=== PATIENT | female | born 1985 | race Caucasian/White ===

== ENCOUNTER 2024-07-15 10:53 | Outpatient (CLI) | payer BC, SELFPAY ==
--- NOTE | ~2024-07-15 | MR_ITS ---
EXAMINATION: MR breast BI wo/w con INDICATION: Dense breast tissue TECHNIQUE: Axial VIBRANT pre and dynamic post contrast, Sagittal VIBRANT post contrast, Axial T2 STIR ASSET COMPARISON: None CONTRAST: Multihance, 15 cc BREAST COMPOSITION: Extreme fibroglandular tissue FINDINGS: RIGHT BREAST: There is moderate background parenchymal enhancement. No abnormal enhancement is presen t after contrast administration. No pathologically enlarged axillary or internal mammary lymph nodes are identified. LEFT BREAST: There is moderate background parenchymal enhancement. No abnormal enhancement is present after contrast administration. No pathologically enlarged axillary or internal mammary lymph nodes a re identified. IMPRESSION: No evidence for malignancy. BI-RADS Category 1: Negative Reviewed, dictated and finalized at location . 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
--- OUTSIDE RECORDS SUMMARY | 2024-07-15 12:45 | XMS_ITS | Clinical Summary ---
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 Gender Identity Not on file Sexual Orientation Not on file Plan of Treatment Health Maintenance Due Date Last Done Comments Cervical Cancer Screening Pa p Smear (Age 30 to 64) Every 3 Years 1983 Annual Physical 1986 Hepatitis C 2001 DTaP, Tdap and Td Vaccines ( 1 - Tdap) 2002 Hepatitis B Vaccines (1 of 3 - 19+ 3-dose series) 2002 Cervical Cancer Screening Pa p with HPV Testing (Age 30 to 64) Every 5 Years 2013 Cervical Cancer Screening with HPV 2013 Mammogram Screening 2023 COVID-19 Vaccine (2023-2 5 season) 2024 Influenza Adult (#1) 2024 HPV Vaccines Aged Out No longer eligi ble based on patient's age to complete this topic Meningococcal B Vaccine Aged Out No l onger eligible based on patient's age to complete this topic Meningococcal Vaccine Aged Out No ronan eileen eligible based on patient's age to complete this topic Pneumococcal Vaccine: Pediat rics (0 to 5 Years) and At-Risk Patients (6 to 64 Years) Aged Out No longer eligible b ased on patient's age to complete this topic RSV Immunizations Under 20 Months Aged Out No longer eligible based on patient's age to complete this topic
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
--- OUTSIDE RECORDS SUMMARY | 2024-07-15 12:45 | XMS_ITS ---
Author Organization Unknown Address [address] [place] [phone] Phone Care Team Providers Care Foot Doctor Name Role Phone [place] Tyson Attending Unavailable JAZMINE Granger Primary Unavailable Immunization Immunization Date Status Additional Notes Code Code System Influenza, split virus, trivalent, preservative 03/17/2019 Completed 141 CVX Influenza, split virus, quadrivalent, PF 03/02/2018 Completed 150 CVX Influenza, split virus, quadrivalent, PF 05/23/2018 Completed 150 CVX Influenza, split virus, quadrivalent, PF 02/28/2020 Completed 150 CVX Influenza, split virus, quadrivalent, PF 03/26/2021 Completed 150 CVX COVID-19, mRNA, LNP-S, PF, 1 00 mcg/0.5mL dose or 50 mcg/0.25mL dose 05/16/2020 Completed 207 CVX COVID-19, mRNA, LNP-S, PF, 1 00 mcg/0.5mL dose or 50 mcg/0.25mL dose 06/13/2020 Completed 207 CVX Results DIG 3D ALEE SCREENING MIMI AL - Completed: 01/01/2024 09:04 LOINC: See Scanned Image Attachment for Report Dictated By: Trans Initials: BG Trans Date: 01/02/24 14:34 <<REPDIST>> Social History Type Status Start Date End Date Code Code Syst em Smoking History Never smoker (Never Smoked) 201094914 SNOMED CT Sex Female Hospital Discharge Instructions Should you have any questions prior to discharge, please contact a member of your healthcare team. If you have left the hospital and have any questions, please contact your primary care physician. Reason For Referral No Data Found Plan of Treatment Digital Alee Screen Bilateral ([id number]) Encounters Encounter Diagnosis Start Date Code Code Sys tem Screening mammography 01/01/2024 [id number] SNOMED -CT Personal Care Team Section Performer Name Performer Role Active Date Inactive Da te Imaging Narrative Notes [facility] 01/02/2024 14:34 [facility] [address] [place], [place] [address] RADIOLOGY REPORT Patient Number: [id number] Patient Name: NASIM WILDE Type: O/P MR Number: [id number] : 1985 Age: 38 Sex: F Room #: Admit Date: 01/01/24 Discharge Date 01/01/24 Ordering Physician: [place] Tyson Family Physician: JAZMINE Caldwell Physician: X-Ray Number : [id number] DIG 3D ALEE SCREENING BILATERA [id number] COMPLETE:01/01/24 09:04 [id number] (REASONS-DIG 3D ALEE SCREENING BILATERAL: SCREENING See Scanned Image Attachment for Report Dictated By: Walter Initials: Trans Date: 01/02/24 14:34 <<REPDIST>>
== END 2024-07-15 10:54 | disposition home or self-care (01) ==
DX: R92.30 Dense breasts, unspecified (principal)
CPT/HCPCS: 77049; A9577; C8908